=== PATIENT | male | born 2000 | race Caucasian/White ===

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

== ENCOUNTER 2021-10-13 22:50 | Emergency (ER) | payer MEDICAID | END 2021-10-13 23:38 | disposition home or self-care (01) | LOC: FB.ED 22:50 | DX: S69.91XA Unspecified injury of right wrist, hand and finger(s), initial encounter (principal); W22.09XA Striking against other stationary object, initial encounter | CPT/HCPCS: 73130-RT; 99282; 99283-25 ==

== ENCOUNTER 2023-06-29 23:21 | Emergency (ER) | payer BC, MEDICAID ==
[2023-06-29] MEDS ORDERED: Ketorolac 30 MG/ML SDV IM ONE (23:40)
== END 2023-06-30 01:25 | disposition other institution (70) ==
LOC: FB.ED 23:21
DX: S52.601A Unspecified fracture of lower end of right ulna, initial encounter for closed fracture (principal); F10.129 Alcohol abuse with intoxication, unspecified; Z87.891 Personal history of nicotine dependence; W18.30XA Fall on same level, unspecified, initial encounter
CPT/HCPCS: 29105; 73080-RT; 99283